=== PATIENT | male | born 1955 | race Hispanic/Latino ===

== ENCOUNTER 2017-10-25 11:32 | Observation (INO) | payer MEDICARE ==
[2017-10-25 12:01] VITALS: BMI 36.0
[2017-10-25] MEDS ORDERED: Sodium Chloride 0.9% 1,000 ML IV STA (13:10)
[2017-10-25 13:43] LABS: BASO % 0.2 % (0.0-2.0); EOS # 0.2 K/uL (0.0-0.7); HEMOGLOBIN 14.4 g/dL (12.0-18.0); LYMPH # 2.6 K/uL (1.0-4.3); LYMPH % 34.8 % (20.0-40.0); MEAN CELL VOLUME 87.3 fl (80.0-94.0); MEAN CORPUSCULAR HEMOGLOBIN 29.3 pg (27.0-31.0); MEAN CORPUSCULAR HGB CONC 33.6 g/dL (33.0-37.0); MEAN PLATELET VOLUME 7.9 fl (7.2-11.7); MONO # 0.7 K/uL (0.0-0.8); MONO % 8.9 % (0.0-10.0); NEUT % 53.1 % (50.0-75.0); NRBC % 0.1 % (0.0-0.0); RBC 4.92 Mil/uL (4.40-5.90); RED CELL DISTRIBUTION WIDTH 15.3 % (11.5-14.5); WHITE BLOOD COUNT 7.6 K/uL (4.8-10.8)
[2017-10-25 13:51] LABS: ALB/GLOB RATIO 1.1 (1.0-2.1); ALBUMIN 4.5 g/dL (3.5-5.0); ALT/SGPT 33 U/L (21-72); AST/SGOT 29 U/L (17-59); BLOOD UREA NITROGEN 17 mg/dl (9-20); CALCIUM 10.4 mg/dL (8.4-10.2); GFR AFRICAN-AMERICAN > 60; GFR NON-AFRICAN AMERICAN > 60
--- NOTE | 2017-10-25 15:08 | ED PDOC ---
HPI: General Adult Time Seen by Provider: 10/25/17 12:38 Chief Complaint (Nursing): High Blood Sugar History Per: Patient (this 62 yo gentleman is referred to the ER by Dr. Patle because of high sugar. Patient has a h/o DM. He takes metformin 750mg TID and Lipitor for cholesterol. He denies blurred vision, chest pain, increased thirst , weight loss or gain. Admits to polyuria and nocturia.) Past Medical History Reviewed: Historical Data, Nursing Documentation, Vital Signs Vital Signs: Last Vital Signs Temp 97.6 F 10/25/17 12:02 Pulse 92 H 10/25/17 12:02 Resp 20 10/25/17 12:02 BP 120/77 10/25/17 12:02 Pulse Ox 96 10/25/17 15:14 - Medical History PMH: No Chronic Diseases, Hypercholesterolemia - Surgical History Surgical History: No Surg Hx - Family History Family History: States: No Known Family Hx - Living Arrangements Living Arrangements: With Family - Allergies Allergies/Adverse Reactions: Allergies Allergy/AdvReac Type Severity Reaction Status Date / Time No Known Allergies Allergy Verified 10/25/17 12:06 Review of Systems ROS Statement: Except As Marked, All Systems Reviewed And Found Negative Constitutional: Negative for: Fever, Weakness, Malaise, Weight loss Respiratory: Negative for: Cough, Shortness of Breath Gastrointestinal: Negative for: Nausea, Vomiting Genitourinary Male: Positive for: Frequency. Negative for: Dysuria Neurological: Negative for: Weakness, Numbness Physical Exam - Reviewed Nursing Documentation Reviewed: Yes Vital Signs Reviewed: Yes - Physical Exam Appears: Positive for: Well, Non-toxic, No Acute Distress Head Exam: Positive for: ATRAUMATIC, NORMAL INSPECTION, NORMOCEPHALIC Skin: Positive for: Normal Color, Warm, DRY Eye Exam: Positive for: EOMI, Normal appearance, PERRL ENT: Positive for: Normal ENT Inspection Neck: Positive for: Normal Cardiovascular/Chest: Positive for: Regular Rate, Rhythm Respiratory: Positive for: CNT, Normal Breath Sounds Gastrointestinal/Abdominal: Positive for: Normal Exam, Soft Back: Positive for: Normal Inspection Extremity: Positive for: Normal ROM Neurologic/Psych: Positive for: Alert, Oriented - Laboratory Results Result Diagrams: 10/25/17 13:25 10/25/17 13:25 - ECG O2 Sat by Pulse Oximetry: 96 Medical Decision Making Medical Decision Makin.00 pending calling back from PMD. 3:20 case dw Drs. Patel. based on abnormal labs that were done in the office two times, will admit for uncontrolled DM and have Dr. Wgigins see the patient. Disposition - Clinical Impression Clinical Impression: Uncontrolled diabetes mellitus - Patient ED Disposition Is Patient to be Admitted: Yes Doctor Will See Patient In The: Hospital - Disposition Disposition: Transfer of Care Disposition Time: 15:34 Condition: GUARDED Forms: [facility] (Georgian) - Pt Status Changed To: Hospital Disposition Of: Observation - POA Present On Arrival: None
--- NOTE | 2017-10-25 18:41 | CP.PCM.HP ---
History of Present Illness - History of Present Illness History of Present Illness: 62 yo with hx of NIDDM HTN Gout admitted for uncontrolled diabetes. Pt who takes metformin, was also found to have low bicarb x 2 as outpatient Present on Admission - Present on Admission Any Indicators Present on Admission: No Past Patient History - Past Medical History & Family History Past Medical History?: Yes - Past Social History Smoking Status: Never Smoked - CARDIAC Hx Cardiac Disorders: Yes Hx Hypercholesterolemia: Yes - PULMONARY Hx Respiratory Disorders: No - NEUROLOGICAL Hx Neurological Disorder: No - HEENT Hx HEENT Problems: No - RENAL Hx Chronic Kidney Disease: No - ENDOCRINE/METABOLIC Hx Endocrine Disorders: Yes Hx Diabetes Mellitus Type 2: Yes - HEMATOLOGICAL/ONCOLOGICAL Hx Blood Disorders: No - INTEGUMENTARY Hx Dermatological Problems: No - MUSCULOSKELETAL/RHEUMATOLOGICAL Hx Musculoskeletal Disorders: No Hx Falls: No - GASTROINTESTINAL Hx Gastrointestinal Disorders: No - GENITOURINARY/GYNECOLOGICAL Hx Genitourinary Disorders: No - PSYCHIATRIC Hx Psychophysiologic Disorder: No Hx Substance Use: No - SURGICAL HISTORY Hx Surgeries: No - ANESTHESIA Hx Anesthesia: No Hx Anesthesia Reactions: No Hx Malignant Hyperthermia: No Meds Allergies/Adverse Reactions: Allergies Allergy/AdvReac Type Severity Reaction Status Date / Time No Known Allergies Allergy Verified 10/25/17 12:06 Physical Exam - Respiratory Exam Respiratory Exam: NORMAL BREATHING PATTERN - Cardiovascular Exam Cardiovascular Exam: REGULAR RHYTHM - GI/Abdominal Exam GI & Abdominal Exam: Normal Bowel Sounds Results - Vital Signs Recent Vital Signs: Last Vital Signs Temp 97.6 F 10/25/17 17:38 Pulse 88 10/25/17 17:40 Resp 18 10/25/17 17:40 BP 143/81 10/25/17 17:38 Pulse Ox 97 10/25/17 17:40 - Labs Result Diagrams: 10/25/17 13:25 10/25/17 13:25 Labs: Laboratory Results - last 24 hr 10/25/17 10/25/17 10/25/17 13:11 13:25 13:25 WBC 7.6 RBC 4.92 Hgb 14.4 Hct 42.9 MCV 87.3 MCH 29.3 MCHC 33.6 RDW 15.3 H Plt Count 229 MPV 7.9 Neut % (Auto) 53.1 Lymph % (Auto) 34.8 Lake % (Auto) 8.9 Eos % (Auto) 3.0 Baso % (Auto) 0.2 Neut # (Auto) 4.0 Lymph # (Auto) 2.6 Lake # (Auto) 0.7 Eos # (Auto) 0.2 Baso # (Auto) 0.0 Sodium 137 Potassium 4.2 Chloride 101 Carbon Dioxide 22 Anion Gap 18 BUN 17 Creatinine 0.6 L Est GFR ( Amer) > 60 Est GFR (Non-Af Amer) > 60 POC Glucose (mg/dL) 273 H Random Glucose 300 H Calcium 10.4 H Total Bilirubin 0.6 AST 29 ALT 33 Alkaline Phosphatase 77 Total Protein 8.6 H Albumin 4.5 Globulin 4.1 H Albumin/Globulin Ratio 1.1 10/25/17 10/25/17 15:59 17:44 WBC RBC Hgb Hct MCV MCH MCHC RDW Plt Count MPV Neut % (Auto) Lymph % (Auto) Lake % (Auto) Eos % (Auto) Baso % (Auto) Neut # (Auto) Lymph # (Auto) Lake # (Auto) Eos # (Auto) Baso # (Auto) Sodium Potassium Chloride Carbon Dioxide Anion Gap BUN Creatinine Est GFR ( Amer) Est GFR (Non-Af Amer) POC Glucose (mg/dL) 239 H 222 H Random Glucose Calcium Total Bilirubin AST ALT Alkaline Phosphatase Total Protein Albumin Globulin Albumin/Globulin Ratio Assessment & Plan - Assessment and Plan (Free Text) Assessment: NIDDM -uncontrolled diabetes ?? lactic acidosis 2 to metformin Endo consult Nutritional consult HTN Gout - Date & Time Date: 10/25/17 Time: 22:22
[2017-10-25] MEDS ORDERED: Patient's Own Med (Lovastatin [Lovastatin] 20 mg) PO SCH (22:00)
[2017-10-25] MEDS ORDERED: Insulin Regular 100 units/ml SC SCH ×2 (22:00→23:00)
--- NOTE | 2017-10-26 00:52 | CON ---
ENDOCRINOLOGY CONSULT DATE: LOCATION: In room 654. HISTORY OF PRESENT ILLNESS: This is a 62-year-old male with known history of type 2 diabetes presenting here with marked hyperglycemic accelerations and recent metabolic acidosis and is now being referred for diabetic evaluation and management. PAST MEDICAL HISTORY: As mentioned above, history of type 2 diabetes on metformin given as 750 mg t.i.d. on the outpatient as noted and given and history of dyslipidemia. FAMILY HISTORY: Positive for diabetes and hypertension. SOCIAL HISTORY: The patient has a supportive family. No known substance use. REVIEW OF SYSTEMS: As mentioned above. Admits to episodic bouts of dizziness and lightheadedness and bifrontal headaches with occasional visual blurring. Also admits to easy fatigability and tiredness with suboptimal energy level and occasional bouts of hypersomnolence. No chest pains or palpitations or PND. His oral intake has been variable, but with nausea and dyspepsia and habitual constipation. Also admits to marked polyuria and nocturia and polydipsia worse in the last 2-3 weeks prior to admission. PHYSICAL EXAMINATION: GENERAL: This is an obese male in no apparent distress. VITAL SIGNS: Blood pressure of 130/80, pulse of 70 beats per minute and regular, temperature 98, respirations 20, height is 5 feet 7 inches, and weight is 230 pounds. HEENT: Head is normocephalic. Eyes; anicteric with pink conjunctivae. Funduscopy not possible at this time. Ears, nose, and throat otherwise normal. NECK: Supple. Thyroid gland is normal in size. No carotid bruits or cervical adenopathy. CARDIOPULMONARY: Some adynamic precordium. S1 and S2 is rapid and regular. LUNGS: Clear to auscultation. ABDOMEN: Obese and soft with positive bowel sounds. EXTREMITIES: No peripheral edema. Pulses are +2 bilaterally. LABORATORY DATA: His chemistries showed a BUN of 17, sodium 137, potassium 4.2, chloride 101, CO2 of 22, glucose of 300, and creatinine 0.3. The glucose levels have ranged from 212-273 mg/dL. His calcium level is 10.4 and his albumin level is 4.5. His total protein is also elevated at 8.6 with globulin of 4.1. His WBC is 7.6, hemoglobin of 14, hematocrit of 43, MCV 87, and platelets 229. ASSESSMENT AND PLAN: This is a 62-year-old male with uncontrolled and decompensated type 2 diabetes with marked hyperglycemic accelerations and dehydration with apparent significant history of possible lactic acidosis on the outpatient, which the primary physician verified and most likely related to ongoing intake of metformin therapy as given. It is quite real however for an asymptomatic patient of sudden lactic acidosis hemodynamically or metabolically compromised seen on the inpatient setting as noted, especially with intercurrent bacteremia or septicemia. Plan of management would prudently hold off the reinitiation of metformin therapy, especially with low normal CO2 at this time of 22 on admission and switch him over to what is available in our hospital drug formulary, which is very limited in terms of what is available on the outpatient and we will start him on glipizide given as 10 mg b.i.d., but this would probably be given only for inpatient use. We will also add Januvia at 100 mg once daily in the morning. However, on the outpatient would recommend a combination of SGLT to inhibitors such as Jardiance or Farxiga, whichever is approved by insurance company in combination with Januvia at 100 mg once daily. If hyperglycemic levels persist, then may consider basal insulin with Lantus preparations as given at bedtime. We now have a combination of basal insulin like Lantus with an SGLT to inhibitor such as the so-called Soliqua injection given at bedtime also which will help to optimize his metabolic control. We will obtain a hemoglobin A1c to confirm his prior poor glycemic control and baseline thyroid function studies and lipid panel will be ordered. We will also give him one more overnight IV infusion with half-normal saline at 100 mL/hour and repeat the chemistries in the morning as ordered. We will follow and advise accordingly. Dawna Wiggins MD
[2017-10-26] MEDS: Sodium Chloride 0.45% 1,000 ML IV SCH ×4 (00:59→22:11)
[2017-10-26 08:16] VITALS: RESP 20
[2017-10-26] MEDS: Insulin Regular 100 units/ml SC SCH ×4 (08:30→22:59)
[2017-10-26 08:40] LABS: ALB/GLOB RATIO 1.1 (1.0-2.1); ALBUMIN 4.2 g/dL (3.5-5.0); ALT/SGPT 35 U/L (21-72); AST/SGOT 30 U/L (17-59); BLOOD UREA NITROGEN 11 mg/dl (9-20); CALCIUM 9.4 mg/dL (8.4-10.2); GFR AFRICAN-AMERICAN > 60; GFR NON-AFRICAN AMERICAN > 60; HDL CHOLESTEROL 31 MG/DL (30-70)
[2017-10-26 08:46] LABS: HEMOGLOBIN 14.2 g/dL (12.0-18.0); MEAN CELL VOLUME 87.1 fl (80.0-94.0); MEAN CORPUSCULAR HEMOGLOBIN 29.4 pg (27.0-31.0); MEAN CORPUSCULAR HGB CONC 33.8 g/dL (33.0-37.0); RBC 4.83 Mil/uL (4.40-5.90); RED CELL DISTRIBUTION WIDTH 16.1 % (11.5-14.5); WHITE BLOOD COUNT 6.3 K/uL (4.8-10.8)
[2017-10-26 08:49] LABS: LDL CHOLESTEROL 93 mg/dL (0-129)
--- NOTE | 2017-10-26 14:07 | PN ---
DATE: 10/26/2017 ENDO FOLLOWUP NOTE LOCATION: Room 654. SUBJECTIVE: This is a 62-year-old male with recent uncontrolled type 2 diabetes, presenting here with marked hyperglycemic accelerations and possible lactic acidosis related to metformin therapy as given and is now being followed closely for metabolic management. He has been taken off all metformin medications at this time and the repeat chemistries today showed the BUN of 11, sodium of 138, potassium of 3.8, chloride of 102, CO2 of 21, glucose of 227, and creatinine of 0.6. His glucose levels overnight have ranged from 177 to 212 and 222 mg/dL. His triglycerides are 552 with a cholesterol of 214 and a TSH of 2.14. ASSESSMENT: This is a 62-year-old male with uncontrolled and decompensated type 2 possibly insulin-requiring diabetes with hyperglycemic accelerations and supervening metabolic acidosis related to lactic acidosis of possible metformin therapy as given on the outpatient. PLAN OF MANAGEMENT: We will continue the IV hydration as given until the mild acidosis resolves as noted overnight. We will continue the modified oral hypoglycemic therapy with Januvia given as 100 mg once daily and glipizide given as 10 mg 2 times a day before meals as ordered. We will prudently hold off the initiation of metformin therapy at this time until the acidosis resolves and we would highly recommend given oral hypoglycemic drug combinations for outpatient diabetic management. We would suggest either the initiation of Farxiga or Jardiance to the current oral hypoglycemic therapy as given. We do not carry those medications in our hospital formulary as noted. We will also consider basal insulin if fasting hyperglycemic accelerations persist as noted. We will follow with you. Dawna Wiggins MD
--- NOTE | 2017-10-26 23:17 | CP.PCM.PN ---
Subjective - Date & Time of Evaluation Date of Evaluation: 10/26/17 Time of Evaluation: 22:22 - Subjective Subjective: Above noted Bicarb 21 Objective - Vital Signs/Intake and Output Vital Signs (last 24 hours): Temp Pulse Resp BP Pulse Ox 98.6 F 97 H 20 104/68 97 10/26/17 17:04 10/26/17 17:04 10/26/17 17:04 10/26/17 17:04 10/26/17 17:04 - Medications Medications: Current Medications Atorvastatin Calcium (Lipitor) 20 mg PO HS [facility] Last Admin: 10/26/17 22:09 Dose: 20 mg Glipizide (Glucotrol) 10 mg PO BIDAC [facility] Last Admin: 10/26/17 17:09 Dose: 10 mg Insulin Human Regular (Humulin R) 0 units SC ACHS [facility] PRN Reason: Protocol Last Admin: 10/26/17 17:10 Dose: Not Given Sitagliptin Phosphate (Januvia) 100 mg PO DAILY [facility] Last Admin: 10/26/17 09:24 Dose: 100 mg - Labs Labs: 10/26/17 06:00 10/26/17 06:00 - Respiratory Exam Respiratory Exam: NORMAL BREATHING PATTERN - Cardiovascular Exam Cardiovascular Exam: REGULAR RHYTHM - GI/Abdominal Exam GI & Abdominal Exam: Normal Bowel Sounds Assessment and Plan - Assessment and Plan (Free Text) Assessment: NIDDM -uncontrolled diabetes ?? lactic acidosis 2 to metformin Endo consult Nutritional consult HTN Gout
[2017-10-27 08:31] VITALS: PULSE 94
[2017-10-27] MEDS: Insulin Regular 100 units/ml SC SCH ×3 (10:03→17:11)
[2017-10-27 15:12] LABS: BLOOD UREA NITROGEN 13 mg/dl (9-20); GFR AFRICAN-AMERICAN > 60; GFR NON-AFRICAN AMERICAN > 60
--- NOTE | 2017-10-27 15:39 | CP.PCM.PN ---
Subjective - Date & Time of Evaluation Date of Evaluation: 10/27/17 Time of Evaluation: 22:22 - Subjective Subjective: BS improved Repeat Bicarb?? Objective - Vital Signs/Intake and Output Vital Signs (last 24 hours): Temp Pulse Resp BP Pulse Ox 98.8 F 94 H 20 151/88 H 95 10/27/17 08:31 10/27/17 08:31 10/27/17 08:31 10/27/17 08:31 10/27/17 08:31 - Medications Medications: Current Medications Atorvastatin Calcium (Lipitor) [address] [facility] Last Admin: 10/26/17 22:09 Dose: 20 mg Glipizide (Glucotrol) [address] [facility] Last Admin: 10/27/17 10:01 Dose: 10 mg Insulin Human Regular (Humulin R) [address] [facility] PRN Reason: Protocol Last Admin: 10/27/17 14:03 Dose: Not Given Sitagliptin Phosphate (Januvia) [address] [facility] Last Admin: 10/27/17 10:01 Dose: 100 mg - Labs Labs: 10/26/17 06:00 10/27/17 14:22 - Respiratory Exam Respiratory Exam: NORMAL BREATHING PATTERN - Cardiovascular Exam Cardiovascular Exam: REGULAR RHYTHM - GI/Abdominal Exam GI & Abdominal Exam: Normal Bowel Sounds Assessment and Plan - Assessment and Plan (Free Text) Assessment: NIDDM -uncontrolled diabetes ?? lactic acidosis 2 to metformin Endo consult Nutritional consult HTN Gout
[2017-10-27 16:21] VITALS: BP 113/79; TEMP 99.2; O2SAT 96
--- NOTE | 2017-10-27 17:40 | PN ---
DATE: 10/27/2017 ENDO FOLLOWUP NOTE LOCATION: Room 654. SUBJECTIVE: This is a 62-year-old male with recent uncontrolled type 2 diabetes, presenting here with marked hyperglycemic accelerations and concomitant metabolic acidosis and is now improving clinically and metabolically as noted thereof. He received IV hydration as given and the glucose fluctuations are still labile, but improved and have ranged from 155 mg/dL to 200 mg/dL. 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 His latest chemistry showed BUN of 11, sodium of 138, potassium of 3.8, chloride of 102, CO2 of 21, glucose of 227, and creatinine of 0.6. His hemoglobin A1c is 11.6%, which is quite elevated and indicative of suboptimal metabolic control of his diabetic condition even prior to this admission. So at this time, we will continue the dual oral hypoglycemic drug regimen as given with Januvia at 100 mg daily and glipizide at 10 mg b.i.d before meals as ordered. Upon discharge, we would also recommend a different of oral hypoglycemic medications such as Jardiance or Farxiga, which are SGLT2 inhibitors that would complement the glycemic lowering profile of the patient. We will obtain serial chemistries and supplement accordingly as needed. We will follow. Dawna Wiggins MD
== END 2017-10-27 18:15 | disposition home or self-care (01) ==
LOC: H.ER 11:32 → H.ERHOLD 15:35 → H.MEDSURG1 17:23
PROVIDERS: ADMIT Family Medicine Geriatric Medicine; ATTEND Family Medicine Geriatric Medicine
DX: E11.65 Type 2 diabetes mellitus with hyperglycemia (principal); E78.00 Pure hypercholesterolemia, unspecified; E78.5 Hyperlipidemia, unspecified; E86.0 Dehydration; I10 Essential (primary) hypertension; M10.9 Gout, unspecified; Z79.84 Long term (current) use of oral hypoglycemic drugs
CPT/HCPCS: 36415; 80048; 80053; 80061; 82948; 83036; 83735; 83970; 84100; 84155; 84165; 84443; 85025; 85027; 96360; 99285; G0378; J7030

== ENCOUNTER 2018-03-17 07:30 | Day surgery (SDC) | payer MEDICARE ==
[2017-12-02 08:31] VITALS: BMI 36.0
[2018-03-17] MEDS ORDERED: Lactated Ringer's 500 ML IV ONE (08:02)
[2018-03-17 11:21] VITALS: TEMP 96.7
[2018-03-17] MEDS ORDERED: Midazolam 2 MG/2 ML VIAL ONE (11:27)
[2018-03-17] MEDS ORDERED: Propofol 10 mg/ml Inj (20 ML) ONE (11:28)
[2018-03-17 12:13] VITALS: BP 118/72; PULSE 69; RESP 15; O2SAT 98
== END 2018-03-17 13:00 | disposition home or self-care (01) ==
LOC: H.ENDO 07:30
PROVIDERS: ATTEND Internal Medicine Gastroenterology
DX: Z12.11 Encounter for screening for malignant neoplasm of colon (principal); E11.9 Type 2 diabetes mellitus without complications; K64.8 Other hemorrhoids
CPT/HCPCS: 45378; 82948; J2001; J2250; J2704; J7120